=== PATIENT | male | born 1950 | race Caucasian/White ===

== ENCOUNTER 2023-01-03 17:23 | Observation (INO) | payer MEDICARE ==
[2023-01-03] MEDS ORDERED: Nitroglycerin 2% Ointment 1 INCH/1 GM Packet ONE (17:45)
[2023-01-03 18:30] LABS: #Monocytes 0.3 10x3/uL (0.0-1.1); #Neutrophils 4.9 10x3/uL (1.5-8.4); %Basophils 0.1 % (0.0-2.0); %Eosinophils 0.3 % (0.0-6.0); %Lymphocytes 27.5 % (18.0-47.0); %Monocytes 3.8 % (0.0-10.0); %Neutrophils 67.7 % (40.0-75.0); Hemoglobin 11.2 g/dL (13.5-17.5); Mean Corpuscular Volume 90.9 fl (81.2-95.1); Mean Platelet Volume 10.6 fl (7.4-10.4); Platelet Count 245 10x3/uL (150-450); RBC Distribution Width 13.9 % (11.5-14.5); Red Blood Cell (RBC) Count 3.73 10x6/uL (4.32-5.72); White Blood Cell (WBC) Count 7.2 10x3/uL (3.5-10.5)
[2023-01-03 18:39] LABS: INR-International Normal Ratio 0.9
[2023-01-03 18:40] LABS: ALT (SGPT) 26 U/L (8-55); AST (SGOT) 20 U/L (5-34); Albumin 3.9 g/dL (3.4-4.8); Alkaline Phosphatase 93 U/L (40-110); Anion Gap 18 mmol/L (10-20); BUN (Urea Nitrogen) 22 mg/dL (8.4-25.7); Bilirubin, Total 0.7 mg/dL (0.2-1.2); Calc. Creatinine Clearance 0 mL/min (70-130); Carbon Dioxide 24 mmol/L (23-31); Chloride 101 mmol/L (98-107); Estimated GFR 85; Globulin 3.3 g/dL (2.4-3.5); Glucose 86 mg/dL (83-110); Potassium 4.5 mmol/L (3.5-5.1); Protein, Total 7.2 g/dL (5.8-8.1); Sodium 138 mmol/L (136-145)
[2023-01-03 18:44] LABS: PTT 21.2 sec (22.0-33.0)
[2023-01-03 19:02] LABS: CKMB 2.3 ng/mL (0-6.6)
[2023-01-03] MEDS ORDERED: Acetaminophen 325 MG TAB ONE (19:16)
[2023-01-03] MEDS ORDERED: Nitroglycerin 0.4 MG TAB (25 Tab Bottle) SL PRN (20:27)
[2023-01-03] MEDS ORDERED: Atorvastatin Calcium 40 MG TAB PO SCH (21:00)
[2023-01-03 21:06] LABS: Magnesium 1.5 mg/dL (1.6-2.6)
[2023-01-03 21:10] LABS: Troponin I 0.126 ng/mL (< 0.028)
[2023-01-03] MEDS ORDERED: traZODone HCl 50 MG TAB PO PRN (21:59)
[2023-01-03] MEDS ORDERED: Nitroglycerin 2% Ointment 1 INCH/1 GM Packet TOP SCH (22:00)
[2023-01-03 22:06] VITALS: BMI 27.9
[2023-01-03] MEDS: TICAGRELOR 90 MG TABLET PO SCH (22:42)
[2023-01-03] MEDS: Senokot 8.6 MG TAB PO SCH (22:45)
[2023-01-03] MEDS: Polyethylene Glycol 3350 17 GM Packet PO SCH (22:47)
[2023-01-03] MEDS: Cholecalciferol 1,000 UNITS (25 MCG) TAB PO SCH (22:47)
[2023-01-03] MEDS: oxyCODONE ER 10 MG TAB PO SCH (23:51)
[2023-01-04 00:03] LABS: Troponin I 0.117 ng/mL (< 0.028)
[2023-01-04] MEDS ORDERED: oxyCODONE 5 MG TAB PO SCH ×2 (00:45→10:00)
[2023-01-04] MEDS ORDERED: Magnesium 2 GM/50 ML(in water) 2 GM in Premix Bag 1 BAG IVPB SCH (02:15)
[2023-01-04 04:35] LABS: #Monocytes 0.1 10x3/uL (0.0-1.1); #Neutrophils 3.1 10x3/uL (1.5-8.4); %Basophils 0.2 % (0.0-2.0); %Eosinophils 0.6 % (0.0-6.0); %Lymphocytes 36.1 % (18.0-47.0); %Monocytes 2.7 % (0.0-10.0); %Neutrophils 59.8 % (40.0-75.0); Hemoglobin 9.9 g/dL (13.5-17.5); Mean Corpuscular HGB CONC 32.6 g/dL (32.0-36.0); Mean Corpuscular Volume 92.1 fl (81.2-95.1); Mean Platelet Volume 10.4 fl (7.4-10.4); Platelet Count 205 10x3/uL (150-450); RBC Distribution Width 13.6 % (11.5-14.5); White Blood Cell (WBC) Count 5.2 10x3/uL (3.5-10.5)
[2023-01-04 04:48] LABS: Anion Gap 15 mmol/L (10-20); BUN (Urea Nitrogen) 18 mg/dL (8.4-25.7); Calc. Creatinine Clearance 99 mL/min (70-130); Carbon Dioxide 24 mmol/L (23-31); Chloride 101 mmol/L (98-107); Estimated GFR 94; Glucose 86 mg/dL (83-110); Sodium 136 mmol/L (136-145)
[2023-01-04] MEDS ORDERED: Morphine 4 MG/ML VIAL SLOW IVP PRN (08:10)
[2023-01-04] MEDS ORDERED: Vit A,C & E/Lutein/Minerals Tablet PO SCH (09:00)
[2023-01-04] MEDS ORDERED: ATORVASTATIN CALCIUM 80 MG PO SCH (09:00)
[2023-01-04] MEDS ORDERED: Lisinopril 2.5 MG TAB PO SCH (09:00)
[2023-01-04] MEDS ORDERED: Docusate 100 MG CAP PO SCH (09:00)
[2023-01-04] MEDS ORDERED: Aspirin 81 mg Enteric Coated Tablet PO SCH (09:00)
[2023-01-04 09:42] LABS: Magnesium 1.8 mg/dL (1.6-2.6)
[2023-01-04] MEDS: Senokot 8.6 MG TAB PO SCH (09:54)
[2023-01-04] MEDS: TICAGRELOR 90 MG TABLET PO SCH (09:54)
[2023-01-04] MEDS: Cholecalciferol 1,000 UNITS (25 MCG) TAB PO SCH (09:56)
[2023-01-04] MEDS: Polyethylene Glycol 3350 17 GM Packet PO SCH (09:57)
[2023-01-04] MEDS ORDERED: Nitroglycerin 2% Ointment 1 INCH/1 GM Packet TOP SCH (10:00)
[2023-01-04] MEDS ORDERED: Lidocaine 2% Viscous Solution 20 ML, Aluminum & Magnesium Hydroxide 30 ML SSW SCH (11:00)
[2023-01-04] MEDS: oxyCODONE ER 10 MG TAB PO SCH (11:07)
[2023-01-04 12:21] VITALS: BP 127/65; TEMP 98.2
== END 2023-01-04 11:50 | disposition home or self-care (01) ==
LOC: CSHERS 17:23 → CSHTELE 21:23
PROVIDERS: ADMIT Family Medicine; ATTEND Internal Medicine
DX: R07.2 Precordial pain (principal); I25.10 Atherosclerotic heart disease of native coronary artery without angina pectoris; I25.2 Old myocardial infarction; C22.1 Intrahepatic bile duct carcinoma; I11.0 Hypertensive heart disease with heart failure; I50.30 Unspecified diastolic (congestive) heart failure; E11.9 Type 2 diabetes mellitus without complications; E78.5 Hyperlipidemia, unspecified; Z88.0 Allergy status to penicillin; Z79.82 Long term (current) use of aspirin; Z95.818 Presence of other cardiac implants and grafts; Z79.899 Other long term (current) drug therapy; Z82.49 Family history of ischemic heart disease and other diseases of the circulatory system
CPT/HCPCS: 71045; 80048; 80053; 82553; 83735 ×2; 84484 ×2; 85025 ×2; 85610; 85730; 93005 ×2; 96374; 99285; G0378 ×3; 36415; 93010; J3475

== ENCOUNTER 2023-04-23 08:29 | Outpatient (CLI) | payer MEDICARE ==
[2023-04-23] MEDS ORDERED: Iopamidol 300 61% 100 ML VIAL FS ONE (15:03)
== END 2023-04-23 08:30 | disposition home or self-care (01) ==
LOC: CSHCT 08:29
PROVIDERS: ATTEND Internal Medicine Hematology & Oncology
DX: C22.1 Intrahepatic bile duct carcinoma (principal)
CPT/HCPCS: 71260; 74177; Q9967

== ENCOUNTER 2023-07-21 09:14 | Outpatient (CLI) | payer MEDICARE ==
[2023-07-21] MEDS ORDERED: Iopamidol 300 61% 100 ML VIAL FS ONE (09:36)
== END 2023-07-21 09:15 | disposition home or self-care (01) ==
LOC: CSHCT 09:14
PROVIDERS: ATTEND Internal Medicine Hematology & Oncology
DX: C22.1 Intrahepatic bile duct carcinoma (principal); Z98.890 Other specified postprocedural states; R18.8 Other ascites
CPT/HCPCS: 71260; 74177; 82565

== ENCOUNTER 2023-11-05 08:25 | Outpatient (CLI) | payer MEDICARE | END 2023-11-05 08:26 | disposition home or self-care (01) | LOC: CSHCT 08:25 | PROVIDERS: ATTEND Internal Medicine Hematology & Oncology | DX: C22.1 Intrahepatic bile duct carcinoma (principal); Z98.890 Other specified postprocedural states; K43.9 Ventral hernia without obstruction or gangrene; K63.89 Other specified diseases of intestine | CPT/HCPCS: 71260; 74177; 82565 ==

== ENCOUNTER 2024-03-31 06:34 | Day surgery (SDC) | payer MEDICARE ==
[2024-03-31] MEDS ORDERED: Nitroglycerin 50 MG/250 ML BOT 250 ML ONE (07:28)
[2024-03-31] MEDS ORDERED: Lidocaine 1% (PF) 30 ML VIAL ONE (07:28)
[2024-03-31] MEDS ORDERED: Heparin 10,000 UNITS/ 10 ML VIAL ONE (07:28)
[2024-03-31] MEDS ORDERED: Adenosine 6 mg (2 mL) VIAL ONE (07:28)
[2024-03-31] MEDS ORDERED: Midazolam HCl 2 mg/2 ml Vial ONE (07:29)
[2024-03-31] MEDS ORDERED: fentaNYL 50 mcg/mL 1 mL Vial ONE ×2 (07:29→08:30)
[2024-03-31] MEDS ORDERED: Atropine Sulfate 1 mg/1 ml Vial ONE (07:29)
[2024-03-31] MEDS ORDERED: Verapamil 5 MG/2 ML VIAL ONE (07:34)
[2024-03-31 07:41] LABS: #Basophils 0.03 10x3/uL (0.0-0.2); #Eosinphils 0.09 10x3/uL (0.0-0.5); #Monocytes 0.38 10x3/uL (0.0-1.1); #Neutrophils 1.86 10x3/uL (1.5-8.4); %Basophils 0.8 % (0.0-2.0); %Eosinophils 2.5 % (0.0-6.0); %Lymphocytes 33.6 % (18.0-47.0); %Monocytes 10.6 % (0.0-10.0); %Neutrophils 51.7 % (40.0-75.0); Hematocrit 32.6 % (38.8-50.0); Hemoglobin 11.2 g/dL (13.5-17.5); Mean Corpuscular HGB CONC 34.4 g/dL (32.0-36.0); Mean Corpuscular Hemoglobin 34.7 pg (27.0-33.0); Mean Corpuscular Volume 100.9 fL (81.2-95.1); Mean Platelet Volume 10.6 fL (7.4-10.4); Platelet Count 131 10x3/uL (150-450); Red Blood Cell (RBC) Count 3.23 10x6/uL (4.32-5.72); White Blood Cell (WBC) Count 3.6 10x3/uL (3.5-10.5)
[2024-03-31 07:45] VITALS: BP 124/59; TEMP 98.5
[2024-03-31 07:50] LABS: PTT 23.9 sec (22.0-33.0); Prothrombin Time 10.7 sec (9.5-12.1)
[2024-03-31 07:53] LABS: Anion Gap 15 mmol/L (10-20); BUN (Urea Nitrogen) 22 mg/dL (8.4-25.7); Calc. Creatinine Clearance 62 mL/min (70-130); Calcium 9.1 mg/dL (7.8-10.44); Carbon Dioxide 22 mmol/L (23-31); Chloride 108 mmol/L (98-107); Estimated GFR 65; Glucose 97 mg/dL (83-110); Potassium 3.7 mmol/L (3.5-5.1); Sodium 141 mmol/L (136-145)
[2024-03-31] MEDS ORDERED: Iopamidol 300 61% 100 ML VIAL FS ONE (10:13)
== END 2024-03-31 10:47 | disposition home or self-care (01) ==
LOC: CSHCCL 06:34
PROVIDERS: ATTEND Specialist
PROC: 4A023N7 Measurement of Cardiac Sampling and Pressure, Left Heart, Percutaneous Approach (ICD-10-PCS; principal; 2024-03-31)
DX: I25.10 Atherosclerotic heart disease of native coronary artery without angina pectoris (principal); E78.2 Mixed hyperlipidemia; C22.1 Intrahepatic bile duct carcinoma; I25.2 Old myocardial infarction; K21.9 Gastro-esophageal reflux disease without esophagitis; Z79.82 Long term (current) use of aspirin; Z79.899 Other long term (current) drug therapy; Z88.0 Allergy status to penicillin; Z98.890 Other specified postprocedural states
CPT/HCPCS: 71045; 80048; 85025; 85610; 85730; 93458; C1769 ×2; C1887; C1894; J1644; J2001; J2250; J3010; 99152; J0153; J0461; Q9967

== ENCOUNTER 2024-07-13 08:05 | Outpatient (CLI) | payer MEDICARE ==
[2024-07-13] MEDS ORDERED: Iopamidol 370 76% 100 ML VIAL ONE (10:43)
== END 2024-07-13 08:06 | disposition home or self-care (01) ==
LOC: CSHCT 08:05
PROVIDERS: ATTEND Internal Medicine Hematology & Oncology
DX: C22.1 Intrahepatic bile duct carcinoma (principal); K76.9 Liver disease, unspecified; R59.0 Localized enlarged lymph nodes; R19.5 Other fecal abnormalities
CPT/HCPCS: 71260; 74177

== ENCOUNTER 2024-09-10 09:00 | Outpatient (CLI) | payer MEDICARE ==
[2024-09-10] MEDS ORDERED: Iopamidol 300 61% 100 ML VIAL FS ONE (11:31)
== END 2024-09-10 09:01 | disposition home or self-care (01) ==
LOC: CSHCT 09:00
PROVIDERS: ATTEND Radiology Radiation Oncology
DX: C22.1 Intrahepatic bile duct carcinoma (principal); C78.7 Secondary malignant neoplasm of liver and intrahepatic bile duct
CPT/HCPCS: 36415; 70491; 71260; 74177; 82565; Q9967

== ENCOUNTER 2024-10-18 08:11 | Emergency (ER) | payer MEDICARE ==
[2024-10-18] MEDS ORDERED: Acetaminophen 500 MG TAB ONE (09:05)
[2024-10-18 09:21] LABS: #Basophils Less than 0.03 10x3/uL (0.0-0.2); #Eosinophils 0.08 10x3/uL (0.0-0.5); #Monocytes 0.28 10x3/uL (0.0-1.1); #Neutrophils 1.78 10x3/uL (1.5-8.4); %Basophils 0.3 % (0.0-2.0); %Eosinophils 2.6 % (0.0-6.0); %Lymphocytes 30.5 % (18.0-47.0); %Neutrophils 57.3 % (40.0-75.0); Hematocrit 35.5 % (38.8-50.0); Hemoglobin 11.6 g/dL (13.5-17.5); Mean Corpuscular HGB CONC 32.7 g/dL (32.0-36.0); Mean Corpuscular Hemoglobin 34.5 pg (27.0-33.0); Mean Corpuscular Volume 105.7 fL (81.2-95.1); Mean Platelet Volume 10.8 fL (7.4-10.4); Platelet Count 83 10x3/uL (150-450); RBC Distribution Width 14.5 % (11.5-14.5); Red Blood Cell (RBC) Count 3.36 10x6/uL (4.32-5.72); White Blood Cell (WBC) Count 3.11 10x3/uL (3.5-10.5)
[2024-10-18 09:23] LABS: ALT (SGPT) 72 U/L (Less than 45); AST (SGOT) 160 U/L (11-34); Albumin 2.5 g/dL (3.1-4.5); Alkaline Phosphatase 449 U/L (40-110); Anion Gap 9 mmol/L (10-20); BUN (Urea Nitrogen) 18 mg/dL (8.4-25.7); Bilirubin, Total 1.4 mg/dL (0.3-1.2); Calc. Creatinine Clearance 0 mL/min (70-130); Calcium 8.5 mg/dL (7.8-10.44); Carbon Dioxide 25 mmol/L (23-31); Chloride 106 mmol/L (98-107); Estimated GFR 72; Globulin 5.4 g/dL (2.4-3.5); Glucose 116 mg/dL (83-110); Magnesium 1.7 mg/dL (1.6-2.6); Potassium 3.7 mmol/L (3.5-5.1); Protein, Total 7.9 g/dL (5.8-8.1); Sodium 136 mmol/L (136-145)
[2024-10-18 09:25] LABS: PTT 27.6 sec (22.0-33.0); Prothrombin Time 10.9 sec (9.5-12.1)
[2024-10-18 09:27] LABS: Troponin I Less than 0.010 ng/mL (< 0.028)
[2024-10-18 09:35] LABS: Large Platelets SLIGHT (None Seen); Macrocytosis SLIGHT = 6-15 cells (100X) (0-5/hpf); Platelet Adequacy Comment Appears Decreased
[2024-10-18 09:36] LABS: MDiff Complete? YES
== END 2024-10-18 10:45 | disposition home or self-care (01) ==
LOC: CSHERS 08:11
DX: S09.90XA Unspecified injury of head, initial encounter (principal); W01.10XA Fall on same level from slipping, tripping and stumbling with subsequent striking against unspecified object, initial encounter
CPT/HCPCS: 36415; 70450; 72125; 80053; 80307; 83735; 84484; 85025; 85610; 85730; 93005

== ENCOUNTER 2025-04-18 12:37 | Outpatient (CLI) | payer MEDICARE ==
[~2025-04-18 12:37] MED LIST: Iopamidol 300 61% 100 ML VIAL FS ONE
== END 2025-04-18 12:38 | disposition home or self-care (01) ==
LOC: CSHCT 12:37
PROVIDERS: ATTEND Internal Medicine Hematology & Oncology
DX: C22.1 Intrahepatic bile duct carcinoma (principal); D70.8 Other neutropenia; R19.09 Other intra-abdominal and pelvic swelling, mass and lump
CPT/HCPCS: 71260; 74177

== ENCOUNTER 2025-07-08 08:35 | Outpatient (CLI) | payer MEDICARE ==
[2025-07-08 09:53] LABS: Estimated GFR - POC 63.0
== END 2025-07-08 08:36 | disposition home or self-care (01) ==
LOC: CSHMRI 08:35
PROVIDERS: ATTEND Internal Medicine Hematology & Oncology
DX: C22.1 Intrahepatic bile duct carcinoma (principal); D70.8 Other neutropenia
CPT/HCPCS: 36415; 74183; 82565